=== PATIENT | male | born 1975 ===

== ENCOUNTER → 2017-05-23 | Outpatient (CLI) | payer BC | END | disposition home or self-care (01) | LOC: C.RDSM 11:05 | PROVIDERS: ATTEND Orthopaedic Surgery Sports Medicine | DX: M25.562 Pain in left knee (principal) ==

== ENCOUNTER 2019-04-17 01:38 | Inpatient (IN) ==
--- OUTSIDE RECORDS SUMMARY | 2019-04-17 01:40 | External Medical Summary | Continuity of Care Document ---
:1975 Author Name Troy Wheeler Address Unavailable Unavailable , Care Team Providers Name Role Phone Tavon Wheeler, I. Unavailable [email or web address] Unavailable Unavailable Unavailable Unavailable Problems Vasectomy evaluation (V25.09) (Z30.09) Allergies and Adverse Reactions Erythromycin TABS (Allergy) Reaction: Ra sh Medications One Daily Mens Oral Tablet Refills: 0 Vitamin C 1000 MG Oral Tablet Refills: 0 Procedures History of no history of surgery Status: Completed Immunizations Immunizations not documented Family History Mother Family history of diabetes mellitus (V18.0) (Z83.3) Status: Active Father Family history of kidney stones (V18.69) (Z84.1) Status: Act radha Family history of Liposarcoma (171.9) (C49.9) Status: Active Social History - Smoking Status Never smoker Plan of Treatment Planned Encounters Appointment; Cruz Montes De Oca M.D. Start: 21-Jul-2019 11:45 R equest Planned Observations Planned Goals not documented Results No Known Results Results not documented Encounters Appointment; Cruz Montes De Oca M.D. 04-Mar-2019 9:00 Encounter Diagnosis: Problem not documented Appointment; Cruz Montes De Oca M.D. 21-Jul-2019 11:45 Encounter Diagnosis: Problem not documented
[2019-04-17] MEDS ORDERED: dilTIAZem HCl 5 MG/ML 5 ML VIAL IV ONE (01:50)
[2019-04-17 02:07] LABS: Hematocrit (blood only) 45.2 % (42-52); Hemoglobin 16.5 g/dL (14.0-18.0); Mean Corpuscular Hgb Conc 36.5 g/dL (32-36); Mean Corpuscular Volume 85.4 fL (80-100); Mean Platelet Volume 12.2 fL (7.4-10.4); Platelet Count 193 K/uL (130-400); RDW Coefficient of Variation 12.9 % (11.5-14.5); Red Blood Count 5.29 M/uL (4.7-6.1); White Blood Count 8.58 K/uL (4.8-10.8)
[2019-04-17 02:23] LABS: Alanine Aminotransferase 36 U/L (12-78); Albumin Level 4.2 gm/dl (3.4-5.0); Aspartate Aminotransferase 22 U/L (15-37); BUN Creatinine Ratio 16.9 (10-20); Blood Urea Nitrogen 17 mg/dl (7-18); Calcium 8.5 mg/dl (8.5-10.1); Carbon Dioxide 26 mmol/L (21-32); Chloride 105 mmol/L (98-107); Creatinine Clr Calc Pharmacy 117.4 ml/min; Est GFR (African American) 105.3; Est GFR (Non-African American) 90.9; Glucose 111 mg/dl (70-99); Magnesium 1.8 mg/dl (1.8-2.4); Potassium 3.3 mmol/L (3.5-5.1); Sodium 138 mmol/L (136-145)
[2019-04-17] MEDS ORDERED: METOPROLOL TARTRATE 1 MG/ML VIAL IV STA ×2 (02:23→04:49)
[2019-04-17] MEDS ORDERED: LORazepam 1 MG/2 ML VIAL IV STA (02:23)
[2019-04-17 02:34] LABS: Albumin Globulin Ratio 1.3 (0.9-2); Alkaline Phosphatase 79 U/L (45-117); Bilirubin,Total 0.5 mg/dl (0.2-1); Globulin 3.3 gm/dl (2.5-4.0); Total Protein 7.5 gm/dl (6.4-8.2); Troponin I < 0.015 ng/ml (0-0.045)
[2019-04-17 03:02] LABS: ALC (manual) 4.37 K/uL (1.2-3.4); Echinocytes 1+; Eosinophils # (manual) 0.15 K/uL (0-0.5); Large Granular Lymph % (manual) 18.4 %; Lymphocytes # (manual) 2.79 K/uL (1.2-3.4); Lymphocytes % (manual) 32.5 %; Monocytes # (manual) 0.52 K/uL (0.11-0.59); Monocytes % (manual) 6.1 %; Neutrophils % (manual) 41.2 %
[2019-04-17] MEDS ORDERED: HEPARIN 25000 UNIT/500 ML D5W IV ONE (03:59)
[2019-04-17] MEDS ORDERED: HEPARIN SOD (PORCINE) 1000 UNIT/ML 10 ML VIAL ONE (04:00)
[2019-04-17 04:16] LABS: Partial Thromboplastin Time 27.9 Seconds (21.0-31.0); Prothrombin Time 10.6 Seconds (9.0-12.0)
--- NOTE | 2019-04-17 04:27 | Emergency Department Note ---
Entered by Keiko Ross acting as a scribe for Suzanne Oden DO History of Present Illness General Chief complaint: Arrhythmia/Palpitations Stated complaint: HEART BEAT IRREGULAR Time Seen by Provider: 04/17/19 01:39 Source: patient Limitations: no limitations History of Present Illness Onset (ago): minute(s) ([employer]) Location: chest Pain Consistency: + intermittent Current Pain Intensity: 0 Quality: + other (palpitations) Relieved By: + none Associated symptoms: + other (more stressed than normal at work) Treatments prior to arrival: other (Zantac) The patient is a 43 year old male who presents to the ED complaining of intermittent chest palpitations that began [employer]. He states that these symptoms do not feel like heartburn, but it does feel similar to past episodes of GERD. The patient complains of being more stressed than normal at work. He denies any pain. The patient states that he used to drink a whole pot of coffee daily, but he reduced it 1-2 cups a day. He reports that he took Zantac [employer], but it provided no relief. The patient notes that he has a family history of heart failure, stating this happened to his grandfather. Home Medications Home Medications Medication Instructions Recorded Confirmed Type multivitamin [Multiple Vitamins] 1 tab PO DAILY 04/17/19 04/17/19 History ranitidine HCl [Zantac Maximum 150 mg PO DAILY PRN 04/17/19 04/17/19 History Strength] Allergies Allergy/AdvReac Type Severity Reaction Status Date / Time erythromycin base Allergy Rash Verified 04/17/19 02:09 Past Med/Surg History Medical History No significant past medical history Family History Other Heart failure Social History Feels Safe at Home: Yes Smoking Status: Never smoker Review of Systems See HPI for pertinent positives & negatives. and A total of 10 systems reviewed and were otherwise negative Physical Exam Vital Signs Vital Signs - 24 hr 04/17/19 01:41 04/17/19 01:49 04/17/19 01:50 Temperature 36.6 C Temperature Source Oral Sepsis Recent Fever Within 48 Hours No Sepsis Action Taken by Nursing No Action Required Pulse Rate 110 H 154 H 179 H Pulse Rate from SpO2 Sensor Respiratory Rate 18 15 18 Respiratory Effort / Characteristics Non-Labored Spontaneous Respiratory Depth Normal Blood Pressure 186/117 H 142/109 H Blood Pressure Mean 140 120 Pulse Oximetry 100 Oxygen Delivery Method Room Air 04/17/19 02:00 04/17/19 02:01 04/17/19 02:16 Temperature Temperature Source Sepsis Recent Fever Within 48 Hours Sepsis Action Taken by Nursing Pulse Rate 106 H 102 H 141 H Pulse Rate from SpO2 Sensor 97 H 93 H 132 H Respiratory Rate 22 29 H 15 Respiratory Effort / Characteristics Respiratory Depth Blood Pressure 114/81 150/104 H Blood Pressure Mean 92 119 Pulse Oximetry 95 98 94 Oxygen Delivery Method 04/17/19 02:30 04/17/19 02:37 04/17/19 02:50 Temperature Temperature Source Sepsis Recent Fever Within 48 Hours Sepsis Action Taken by Nursing Pulse Rate 121 H 118 H 91 H Pulse Rate from SpO2 Sensor 92 H 81 Respiratory Rate 17 16 Respiratory Effort / Characteristics Respiratory Depth Blood Pressure 124/89 Blood Pressure Mean Pulse Oximetry 96 96 Oxygen Delivery Method 04/17/19 03:00 04/17/19 03:01 04/17/19 03:10 Temperature Temperature Source Sepsis Recent Fever Within 48 Hours Sepsis Action Taken by Nursing Pulse Rate 111 H 102 H 117 H Pulse Rate from SpO2 Sensor 81 99 H 82 Respiratory Rate 16 17 18 Respiratory Effort / Characteristics Respiratory Depth Blood Pressure 119/76 Blood Pressure Mean 90 Pulse Oximetry 94 95 96 Oxygen Delivery Method 04/17/19 03:16 04/17/19 03:30 04/17/19 03:46 Temperature Temperature Source Sepsis Recent Fever Within 48 Hours Sepsis Action Taken by Nursing Pulse Rate 113 H 105 H 103 H Pulse Rate from SpO2 Sensor 85 79 79 Respiratory Rate 17 16 16 Respiratory Effort / Characteristics Respiratory Depth Blood Pressure 92/74 L 124/83 108/64 Blood Pressure Mean 80 96 78 Pulse Oximetry 95 95 94 Oxygen Delivery Method HEENT: Head - normocephalic and atraumatic Pupils are equal, round, and reactive to light. Extraocular eye muscles are intact, and sclera are anicteric. Nose - moist nasal mucosa without discharge. Mouth - moist buccal mucosa. Oropharynx is nonerythematous and there is no tonsillar exudate or edema noted. Neck: Supple; no JVD, nuchal rigidity, cervical lymphadenopathy, or auscultated bruits. Heart: Tachycardic rate and irregularly irregular rhythm. There is a normal S1 and S2 with no murmurs, clicks, or gallops appreciated. Lungs: Clear to auscultation bilaterally with no wheezes, rales, or rhonchi. Abdomen: Soft, completely nontender, nondistended, with good bowel sounds. There are no palpable pulsatile masses or hepatosplenomegaly. There is no guarding, rigidity, or rebound noted. Extremities: No evidence of cyanosis, clubbing, or edema. There are easily palpable peripheral pulses. Skin: warm and dry with good turgor and no rashes. Course 0147: The patient was evaluated in room A02. A complete history and physical exam was performed. The patient was observed on the nurse monitoring and pulse oximeter. An IV lock was initiated and labs were drawn as above. A twelve-lead EKG was obtained as described above 0150: Cardizem 20 mg IV 0221: I reevaluated the patient. His heart rate was in the 120s and 130s. He had just got up to go to the bathroom. 0223: Lopressor 5 mg IV, Ativan 1 mg in 2 ml IV 0318: I reassessed the patient. His heart rate was in the 90s, but he was still in atrial fibrillation. 0320: Heparin IV Standard WITH Bolus 1 ea IV 0325: I spoke with Dr. Salvador, [facility] hospitalist, about the patient's case. He will evaluate the patient further. Consultations Consultation #1: [facility]. He will evaluate the patient further. Time: 03:25 Administered Medications Discontinued Medications Diltiazem HCl (Cardizem) Confirm Administered Dose 25 mg IV .[facility] Stop: 04/17/19 01:51 Last Admin: 04/17/19 01:54 Dose: 20 mg Documented by: [id number] Cosigned by: [id number] Lorazepam (Ativan) 1 mg in 2 mls @ 2 mls/min IV NOW STA Stop: 04/17/19 02:24 Last Admin: 04/17/19 02:37 Dose: 2 mls/min Documented by: [id number] Metoprolol Tartrate (Lopressor) 5 mg IV NOW STA Stop: 04/17/19 02:24 Last Admin: 04/17/19 02:37 Dose: 5 mg Documented by: [id number] Medical Decision Making Differential Diagnosis The differential diagnosis includes: Atrial fibrillation with RVR, cardiac dysrhythmia, anxiety, thyroid dysfunction, and cardiomyopathy. Medical Records Attestation: I reviewed the patient's medical records. Home Medications Current Medication List: was personally reviewed by me Laboratory Data Attestation: I reviewed the patient's lab results. Result diagrams: 04/17/19 01:55 04/17/19 01:55 Lab Results 04/17/19 04/17/19 04/17/19 Range/Units 01:55 01:55 01:55 WBC 8.58 (4.8-10.8) K/uL RBC 5.29 (4.7-6.1) M/uL Hgb 16.5 (14.0-18.0) g/dL Hct 45.2 (42-52) % MCV 85.4 (80-100) fL MCH 31.2 (25-34) pg MCHC 36.5 H (32-36) g/dL RDW Std Deviation 40.0 (36.4-46.3) fL RDW Coeff of João 12.9 (11.5-14.5) % Plt Count 193 (130-400) K/uL MPV 12.2 H (7.4-10.4) fL Neutrophils % (Manual) 41.2 % Lymphocytes % (Manual) 32.5 % Monocytes % (Manual) 6.1 % Eosinophils % (Manual) 1.8 % Neutrophils # (Manual) 3.53 (1.4-6.5) K/uL Total Absolute Neuts 3.53 (1.4-6.5) K/uL Lymphocytes # (Manual) 2.79 (1.2-3.4) K/uL Total Abs Lymphocytes 4.37 H (1.2-3.4) K/uL Monocytes # (Manual) 0.52 (0.11-0.59) K/uL Eosinophils # (Manual) 0.15 (0-0.5) K/uL Large Granular Lymphs 18.4 % # Lrg Granular Lymphs 1.58 K/uL Echinocytes 1+ PT 10.6 (9.0-12.0) Seconds INR 1.0 (0.9-1.1) APTT 27.9 (21.0-31.0) Seconds PTT Ratio 1.0 Sodium 138 (136-145) mmol/L Potassium 3.3 L (3.5-5.1) mmol/L Chloride 105 (98-107) mmol/L Carbon Dioxide 26 (21-32) mmol/L Anion Gap 7.0 (3-11) BUN 17 (7-18) mg/dl Creatinine 1.02 (0.6-1.4) mg/dl Est Cr Clr Drug Dosing 117.4 ml/min Est GFR ( Amer) 105.3 Est GFR (Non-Af Amer) 90.9 BUN/Creatinine Ratio 16.9 (10-20) Glucose 111 H (70-99) mg/dl Calcium 8.5 (8.5-10.1) mg/dl Magnesium 1.8 (1.8-2.4) mg/dl Total Bilirubin 0.5 (0.2-1) mg/dl AST 22 (15-37) U/L ALT 36 (12-78) U/L Alkaline Phosphatase 79 (45-117) U/L Troponin I < 0.015 (0-0.045) ng/ml Total Protein 7.5 (6.4-8.2) gm/dl Albumin 4.2 (3.4-5.0) gm/dl Globulin 3.3 (2.5-4.0) gm/dl Albumin/Globulin Ratio 1.3 (0.9-2) TSH 1.810 (0.300-4.500) uIu/ml Imaging Data Attestation: I personally reviewed and interpreted this imaging study as follows: My Impression: XR CHEST 1V: No pulmonary infiltrates or pleural effusions. ECG Data Attestation: I personally reviewed and interpreted this ECG as follows: Indication: palpitations Rate (beats per minute): 159 Rhythm: atrial fibrillation (with RVR) Findings: + other (inferior changes concerning for ischemia) and + ST depression (Inferior) Blood Pressure Blood Pressure Findings: Elevated blood pressure Blood Pressure Disposition: elevated BP felt to be situational MDM Narrative The patient is a 43 year old male who presents to the ED complaining of intermittent chest palpitations that began [employer]. The patient denies ever having a history of this in the past. EKG revealed atrial fibrillation with rapid ventricular response. The patient did have some associated GERD earlier today. He took Zantac for this. Troponin is negative here. Rate was controlled with Lopressor and Cardizem. I discussed the case with the [facility] Hospitalist and they will evaluate for further management. The patient was bolused with heparin and started on a heparin drip. Impression & Plan Atrial fibrillation with RVR Critical Care Time I have personally spent 60 minutes of critical care time in the direct management of this patient. This includes bedside care, interpretation of diagnostic studies, and testing, discussion with consultants, patient, and family members, and other required patient management activities. This 60 minutes is in excess of all separately billable procedures. Critical Care Time: Yes Total Critical Care Time: 60 Discharge Plan Visit Data Chief Complaint: Arrhythmia/Palpitations Stated Complaint: HEART BEAT IRREGULAR ED Provider: Suzanne Oden Discharge Problem: Atrial fibrillation with RVR Patient Disposition: Being Evaluated by Hospitalist Forms Stand Alone Forms: My [facility] Prescriptions Prescriptions: No Action multivitamin [Multiple Vitamins] Tablet 1 tab PO DAILY RF: 0 ranitidine HCl [Zantac Maximum Strength] 150 mg Tablet 150 mg PO DAILY PRN (Reason: Heartburn) RF: 0 Referrals Referrals: Mariya Pena MD [Primary Care Provider] - The scribe's documentation has been prepared under my direction and personally reviewed by me in its entirety. I confirm that the note above accurately reflects all work, treatment, procedures, and medical decision making performed by me.
[2019-04-17] MEDS ORDERED: dilTIAZem HCl 125 MG in DEXTROSE 5% 100 ML IV SCH (05:20)
[2019-04-17] MEDS ORDERED: ACETAMINOPHEN 325 MG TAB PO PRN (05:20)
[2019-04-17] MEDS ORDERED: POTASSIUM CHLORIDE 20 MEQ TABCR PO STA ×2 (05:20→13:57)
[2019-04-17] MEDS ORDERED: NITROGLYCERIN SL 0.4 MG/TAB TAB SL PRN (05:20)
[2019-04-17] MEDS ORDERED: Heparin IV Standard *NO* Bolus ONE (05:20)
[2019-04-17] MEDS ORDERED: ONDANSETRON INJ 2 MG/ML 2 ML VIAL IV PRN (05:20)
[2019-04-17] MEDS ORDERED: dilTIAZem HCl 125 MG in DEXTROSE 5% 100 ML IV PRN (06:15)
[2019-04-17] MEDS: Heparin Adult STANDARD Wt-Based Dextrose 5% 25,000 units/500 mL IV SCH ×2 (06:37→06:56)
--- NOTE | 2019-04-17 07:18 | History and Physical Report ---
DATE OF ADMISSION: 04/17/2019 CHIEF COMPLAINT: Rapid AFib. HISTORY OF PRESENT ILLNESS: This is a 43-year-old male with no significant past medical history who lives with his and his kids, presents with palpitations and found to be in rapid AFib. The patient says he noticed tonight that his heart was skipping and also noticed palpitations and during this period, he had a couple episodes of shortness of breath, but denies any chest pain, no dizziness, no headaches. Because of ongoing palpitations, he came to the ER and found to be in rapid AFib. This is the first time it happened to him. The patient says his parents did not have any cardiac history. His grandparents might have had some heart disease. Denies any smoking. He says he drinks occasionally. Denies any recent drug abuse. He says he might have abused a couple of drugs about 20 years ago. Denies any nausea, vomiting. No fever, chills. No cough, no blurred vision, no earache, no runny nose, no sore throat. Appetite is okay. No fever, no chills, no cough, no abdominal pain. Sometimes he feels after eating he will have some irritation feeling in his esophagus, takes Zantac. Normal bowel and bladder movements. No hematuria or burning micturition. No melena or hematochezia. No swelling of the legs. Currently, he received couple of doses of iv Cardizem and a dose of IV Lopressor in the ER, still heart rates ranging from 130-150s. ALLERGIES: ERYTHROMYCIN. PAST MEDICAL HISTORY: None. PAST SURGICAL HISTORY: None. MEDICATIONS: Takes Zantac and multivitamin. FAMILY HISTORY: Father had a liposarcoma of the left arm and diabetes. Mother has high cholesterol. SOCIAL HISTORY: Lives with his and kids. No smoking, alcohol occasionally. No recent use of drugs. REVIEW OF SYMPTOMS: As per HPI. Rest of review of symptoms is negative. IMMUNIZATIONS: Pneumococcal vaccine, July 2013. Flu vaccine, October 2018. PHYSICAL EXAMINATION: GENERAL: The patient is alert and oriented, not in acute distress. VITAL SIGNS: Temperature 36.6, pulse currently in the 130-150, blood pressure 108/64, oxygen 94% room air. HEENT: No pallor, no icterus. Pupils equal, round, and reactive to light. NECK: No JVD, no neck masses, no carotid bruit. CARDIOVASCULAR: S1, S2 heard. Irregular rhythm. Tachycardia. No murmurs. RESPIRATORY SYSTEM: Normal AP diameter. No accessory muscle use. No wheezing, no crackles. ABDOMEN: Soft, bowel sounds present. Nontender. No distention. CENTRAL NERVOUS SYSTEM: Cranial nerves II-XII grossly intact. Nonfocal. EXTREMITIES: No edema, no erythema. LABORATORY DATA: WBC is 8.5, hemoglobin 16.5, hematocrit 45.2, platelets 193. PT 10.6, INR 1, APTT 27.9. Sodium 138, potassium 3.3, chloride 105, bicarbonate 26, BUN 17, creatinine 1.02, serum glucose 111, calcium 8.5, magnesium 1.8, total bilirubin 0.5, AST 22, ALT 36, alkaline phosphatase 79. Troponin I less than 0.015. TSH 1.8. Chest x-ray: No acute findings. EKG: Rapid atrial fibrillation with a rate of 159, nonspecific ST abnormalities seen. ASSESSMENT AND PLAN: This 43-year-old male presents with rapid atrial fibrillation. 1. Rapid atrial new onset, etiology unclear. Labs are okay except for mild hypokalemia which we will replace. Troponin negative. The patient received couple of doses of iv Cardizem and a dose of IV Lopressor in the ER. We will place him on Cardizem drip, IV heparin. Follow serial cardiac enzymes, echocardiogram. Closely monitor in tele floor. Consult cardiology for further recommendations. The patient's CHADS2-VASc score is 0 .Long-term anticoagulation as per cardiology. 2. Hypokalemia. We will replace. 3. Deep venous thrombosis prophylaxis, on IV heparin. 4. Disposition: Admit to tele floor. Expect to discharge home and follow with his family doctor and cardiology. Level 1 full code. MTDD
--- NOTE | 2019-04-17 07:46 | XRay Report ---
XR chest 1V portable HISTORY: eval for cardiomegaly COMPARISON: None. FINDINGS: The lungs are clear. Cardiac silhouette is normal in size. No pleural effusions. No pneumot horax. IMPRESSION: No acute process. Electronically signed by: Atul Woodward M.D. 04/17/2019 7:45 AM
[2019-04-17] MEDS ORDERED: MULTIVITAMIN TAB PO SCH (09:00)
[2019-04-17 12:24] LABS: Partial Thromboplastin Ratio 3.5
[2019-04-17 12:27] LABS: Partial Thromboplastin Time 93.7 Seconds (21.0-31.0)
--- NOTE | 2019-04-17 13:27 | Hospitalist Progress Note ---
Date of Service April 17, 2019 Results & Data Vital Signs (Past 12 Hours) Vital Signs Temp Pulse Pulse Resp BP BP Pulse Ox 04/17/19 11:13 36.8 C 74 19 128/79 95 04/17/19 07:40 36.2 C L 89 19 115/70 93 04/17/19 05:20 36.8 C 94 H 18 109/79 97 04/17/19 04:54 145 H 118/75 04/17/19 04:45 141 H 18 118/75 04/17/19 04:35 143 H 15 102/83 04/17/19 04:31 121 H 9 L 98/80 L 04/17/19 04:17 132 H 19 133/54 L 04/17/19 04:00 147 H 5 L 100/87 96 04/17/19 03:46 103 H 16 108/64 94 04/17/19 03:30 105 H 16 124/83 95 04/17/19 03:16 113 H 17 92/74 L 95 04/17/19 03:10 117 H 18 96 04/17/19 03:01 102 H 17 119/76 95 04/17/19 03:00 111 H 16 94 04/17/19 02:50 91 H 16 96 04/17/19 02:37 118 H 124/89 04/17/19 02:30 121 H 17 96 04/17/19 02:16 141 H 15 150/104 H 94 04/17/19 02:01 102 H 29 H 114/81 98 04/17/19 02:00 106 H 22 95 04/17/19 01:50 179 H 18 04/17/19 01:49 154 H 15 142/109 H 04/17/19 01:41 36.6 C 110 H 18 186/117 H 100
[2019-04-17] MEDS ORDERED: PANTOprazole 40 MG TAB PO SCH (13:30)
--- NOTE | 2019-04-17 13:46 | Cardiology Consultation ---
Date of Consultation April 17, 2019 Assessment & Plan (1) Atrial fibrillation with RVR: Patient presents with new onset atrial fibrillation abrupt in timing and onset. Rates are only marginally controlled with IV diltiazem patient not significantly symptomatic other than past sensation of palpitations Echocardiogram demonstrates normal LV function without significant valvular disease cardiac enzymes normal Discussed mechanism and treatment in detail with patient and Plan: Initiate oral beta-sheldon with Toprol-XL 25 g now and this evening. Continue IV heparin Supplement potassium Keep n.p.o. after midnight tonight Present on Admission?: Yes History of Present Illness Reason for Consultation: New onset atrial fibrillation Requesting Physician: Dr. White Attending Physician: Marilia White, DO History of Present Illness Patient is a 43-year-old male without prior cardiac history or complaint minimal underlying medical issues who notes after recent stressful day at work to lie down at bed at night and noted sensation of tachypalpitations pounding in the left side of the chest worse with movement and walking. He presented to the emergency room where he was found to be in atrial fibrillation with rapid v entricular response He was begun on IV diltiazem to aid in rate control and referred now for further evaluation. He is appropriately anticoagulated IV heparin He denies prior history of atrial arrhythmias. Denies history of chest pains tachypalpitations syncope or near syncope. No history of hypertension diabetes mellitus renal or hepatic disease. No history of TIA or stroke. Notes no change in exercise capacity. Only ongoing issues intermittent indigestion and heartburn relieved with Zantac. Notes ate a pizza last night with onions and drank a soda unusual for patient. Took a Zantac prior to event No history febrile illness. Did travel to [place] and [facility] 2 weeks ago. But no leg swelling or edema. No shortness of breath or hypoxia No history of sleep disturbance, acute weight loss or gain Allergies Allergy/AdvReac Type Severity Reaction Status Date / Time erythromycin base Allergy Rash Verified 04/17/19 02:09 Home Medications Home Medications Medication Instructions Recorded Confirmed Type multivitamin [Multiple Vitamins] 1 tab PO DAILY 04/17/19 04/17/19 History ranitidine HCl [Zantac Maximum 150 mg PO DAILY PRN 04/17/19 04/17/19 History Strength] Patient History Medical History No significant past medical history Family History Other Heart failure Social History Preferred Language: Serbian Communication Ability: Effective Beliefs That Will Affect Care: None Current Living Situation: Spouse and Family Other Information That Helps Us Care for You: No Feels Safe at Home: Yes Safety Concerns: Feels Safe At This Time Smoking Status: Never smoker Hx Alcohol Use: No Hx Substance Use: No Review of Systems Review of Systems: As per HPI Physical Exam Constitutional: WD/WN, vitals as above Eyes: PERRL, conjunctivae normal, anicteric sclerae ENMT: external ear and nose normal, oropharynx normal Neck: trachea midline, no thyromegaly Respiratory: normal respiratory effort, lungs clear to auscultation Cardiovascular: Rate/Rhythm: + irregularly irregular Heart Sounds: normal S1 and normal S2; no gallop, no murmur and no cardiac rub Palpation: normal PMI Vessels: no JVD, no carotid bruit and no abdominal aortic bruit Extremities: no edema Gastrointestinal (Abdomen): normal bowel sounds, soft, nontender, no hepatosplenomegaly Musculoskeletal: no cyanosis or clubbing, extremities motor strength 5/5 Neurologic: PERRL, EOMI, accommodation nl, no face palsy, no dysarthria Psychiatric: A+Ox3, euthymic affect Results & Data Vital Signs (Past 12 Hours) Vital Signs Temp Pulse Pulse Resp BP BP Pulse Ox 04/17/19 11:13 36.8 C 74 19 128/79 95 04/17/19 07:40 36.2 C L 89 19 115/70 93 04/17/19 05:20 36.8 C 94 H 18 109/79 97 04/17/19 04:54 145 H 118/75 04/17/19 04:45 141 H 18 118/75 04/17/19 04:35 143 H 15 102/83 04/17/19 04:31 121 H 9 L 98/80 L 04/17/19 04:17 132 H 19 133/54 L 04/17/19 04:00 147 H 5 L 100/87 96 04/17/19 03:46 103 H 16 108/64 94 04/17/19 03:30 105 H 16 124/83 95 05/18/19 03:16 113 H 17 92/74 L 95 04/17/19 03:10 117 H 18 96 04/17/19 03:01 102 H 17 119/76 95 04/17/19 03:00 111 H 16 94 04/17/19 02:50 91 H 16 96 04/17/19 02:37 118 H 124/89 04/17/19 02:30 121 H 17 96 04/17/19 02:16 141 H 15 150/104 H 94 04/17/19 02:01 102 H 29 H 114/81 98 04/17/19 02:00 106 H 22 95 04/17/19 01:50 179 H 18 04/17/19 01:49 154 H 15 142/109 H Laboratory Results Laboratory Results - last 24 hr 04/17/19 04/17/19 04/17/19 01:55 01:55 01:55 WBC 8.58 RBC 5.29 Hgb 16.5 Hct 45.2 MCV 85.4 MCH 31.2 MCHC 36.5 H RDW Std Deviation 40.0 RDW Coeff of João 12.9 Plt Count 193 MPV 12.2 H Neutrophils % (Manual) 41.2 Lymphocytes % (Manual) 32.5 Monocytes % (Manual) 6.1 Eosinophils % (Manual) 1.8 Neutrophils # (Manual) 3.53 Total Absolute Neuts 3.53 Lymphocytes # (Manual) 2.79 Total Abs Lymphocytes 4.37 H Monocytes # (Manual) 0.52 Eosinophils # (Manual) 0.15 Large Granular Lymphs 18.4 # Lrg Granular Lymphs 1.58 Echinocytes 1+ PT 10.6 INR 1.0 APTT 27.9 PTT Ratio 1.0 Sodium 138 Potassium 3.3 L Chloride 105 Carbon Dioxide 26 Anion Gap 7.0 BUN 17 Creatinine 1.02 Est Cr Clr Drug Dosing 117.4 Est GFR ( Amer) 105.3 Est GFR (Non-Af Amer) 90.9 BUN/Creatinine Ratio 16.9 Glucose 111 H POC Glucose Calcium 8.5 Magnesium 1.8 Total Bilirubin 0.5 AST 22 ALT 36 Alkaline Phosphatase 79 Troponin I < 0.015 Total Protein 7.5 Albumin 4.2 Globulin 3.3 Albumin/Globulin Ratio 1.3 TSH 1.810 04/17/19 04/17/19 04/17/19 06:26 07:22 11:44 WBC RBC Hgb Hct MCV MCH MCHC RDW Std Deviation RDW Coeff of João Plt Count MPV Neutrophils % (Manual) Lymphocytes % (Manual) Monocytes % (Manual) Eosinophils % (Manual) Neutrophils # (Manual) Total Absolute Neuts Lymphocytes # (Manual) Total Abs Lymphocytes Monocytes # (Manual) Eosinophils # (Manual) Large Granular Lymphs # Lrg Granular Lymphs Echinocytes PT INR APTT PTT Ratio Sodium Potassium Chloride Carbon Dioxide Anion Gap BUN Creatinine Est Cr Clr Drug Dosing Est GFR ( Amer) Est GFR (Non-Af Amer) BUN/Creatinine Ratio Glucose POC Glucose 103 H Calcium Magnesium Total Bilirubin AST ALT Alkaline Phosphatase Troponin I < 0.015 < 0.015 Total Protein Albumin Globulin Albumin/Globulin Ratio TSH 04/17/19 11:48 WBC RBC Hgb Hct MCV MCH MCHC RDW Std Deviation RDW Coeff of João Plt Count MPV Neutrophils % (Manual) Lymphocytes % (Manual) Monocytes % (Manual) Eosinophils % (Manual) Neutrophils # (Manual) Total Absolute Neuts Lymphocytes # (Manual) Total Abs Lymphocytes Monocytes # (Manual) Eosinophils # (Manual) Large Granular Lymphs # Lrg Granular Lymphs Echinocytes PT INR APTT 93.7 H* PTT Ratio 3.5 Sodium Potassium Chloride Carbon Dioxide Anion Gap BUN Creatinine Est Cr Clr Drug Dosing Est GFR ( Amer) Est GFR (Non-Af Amer) BUN/Creatinine Ratio Glucose POC Glucose Calcium Magnesium Total Bilirubin AST ALT Alkaline Phosphatase Troponin I Total Protein Albumin Globulin Albumin/Globulin Ratio TSH ECG Additional Comments: 17-APR-2019 01:47:01 [facility]-EDSTAT ROUTINE RETRIEVAL Atrial fibrillation with rapid ventricular response Nonspecific ST abnormality Abnormal QRS-T angle, consider primary T wave abnormality Abnormal ECG No previous ECGs available Confirmed by Deuce Guevara ([id number]) on 04/17/2019 11:48:23 AM
[2019-04-17] MEDS ORDERED: METOPROLOL SUCC 25MG EXT REL TAB PO STA (13:49)
--- NOTE | 2019-04-17 15:06 | Cardiology Progress Note ---
Date of Service April 17, 2019 Assessment & Plan (1) Atrial fibrillation with RVR: Patient presents with new onset atrial fibrillation abrupt in timing and onset. Rates are only marginally controlled with IV diltiazem patient not significantly symptomatic other than past sensation of palpitations Echocardiogram demonstrates normal LV function without significant valvular disease cardiac enzymes normal Discussed mechanism and treatment in detail with patient and Plan: Initiate oral beta-sheldon with Toprol-XL 25 g now and this evening. Continue IV heparin Supplement potassium Keep n.p.o. after midnight tonight Addendum patient converted spontaneously will discontinue above orders including IV heparin begin Toprol-XL 12.5 mg daily plan follow-up post discharge with cardiology in a month discussed atrial fibrillation in detail with the patient he will contact with any work Subjective Return to see patient after he spontaneously converted to sinus rhythm. Feels well EKG postconversion demonstrates normal tracing no QT prolongation no ST segment abnormalities Physical Exam Constitutional: WD/WN, vitals as above Eyes: PERRL, conjunctivae normal, anicteric sclerae ENMT: external ear and nose normal, oropharynx normal Neck: trachea midline, no thyromegaly Respiratory: normal respiratory effort, lungs clear to auscultation Cardiovascular: Rate/Rhythm: + irregularly irregular Heart Sounds: normal S1 and normal S2; no gallop, no murmur and no cardiac rub Palpation: normal PMI Vessels: no JVD, no carotid bruit and no abdominal aortic bruit Extremities: no edema Gastrointestinal (Abdomen): normal bowel sounds, soft, nontender, no hepatosplenomegaly Musculoskeletal: no cyanosis or clubbing, extremities motor strength 5/5 Neurologic: PERRL, EOMI, accommodation nl, no face palsy, no dysarthria Psychiatric: A+Ox3, euthymic affect Results & Data Vital Signs (Past 12 Hours) Vital Signs Temp Pulse Pulse Resp BP BP Pulse Ox 04/17/19 14:59 36.5 C 72 126/84 97 04/17/19 11:13 36.8 C 74 19 128/79 95 04/17/19 07:40 36.2 C L 89 19 115/70 93 04/17/19 05:20 36.8 C 94 H 18 109/79 97 04/17/19 04:54 145 H 118/75 04/17/19 04:45 141 H 18 118/75 04/17/19 04:35 143 H 15 102/83 04/17/19 04:31 121 H 9 L 98/80 L 04/17/19 04:17 132 H 19 133/54 L 04/17/19 04:00 147 H 5 L 100/87 96 04/17/19 03:46 103 H 16 108/64 94 04/17/19 03:30 105 H 16 124/83 95 04/17/19 03:16 113 H 17 92/74 L 95 04/17/19 03:10 117 H 18 96
--- NOTE | 2019-04-17 15:12 | Discharge Summary ---
Date of Service April 17, 2019 Admission HPI Per Admitting Provider HISTORY OF PRESENT ILLNESS: This is a 43-year-old male with no significant past medical history who lives with his and his kids, presents with palpitations and found to be in rapid AFib. The patient says he noticed tonight that his heart was skipping and also noticed palpitations and during this period, he had a couple episodes of shortness of breath, but denies any chest pain, no dizziness, no headaches. Because of ongoing palpitations, he came to the ER and found to be in rapid AFib. This is the first time it happened to him. The patient says his parents did not have any cardiac history. His grandparents might have had some heart disease. Denies any smoking. He says he drinks occasionally. Denies any recent drug abuse. He says he might have abused a couple of drugs about 20 years ago. Denies any nausea, vomiting. No fever, chills. No cough, no blurred vision, no earache, no runny nose, no sore throat. Appetite is okay. No fever, no chills, no cough, no abdominal pain. Sometimes he feels after eating he will have some irritation feeling in his esophagus, takes Zantac. Normal bowel and bladder movements. No hematuria or burning micturition. No melena or hematochezia. No swelling of the legs. Currently, he received couple of doses of iv Cardizem and a dose of IV Lopressor in the ER, still heart rates ranging from 130-150s. Admission Exam Per Admitting Provider PHYSICAL EXAMINATION: GENERAL: The patient is alert and oriented, not in acute distress. VITAL SIGNS: Temperature 36.6, pulse currently in the 130-150, blood pressure 108/64, oxygen 94% room air. HEENT: No pallor, no icterus. Pupils equal, round, and reactive to light. NECK: No JVD, no neck masses, no carotid bruit. CARDIOVASCULAR: S1, S2 heard. Irregular rhythm. Tachycardia. No murmurs. RESPIRATORY SYSTEM: Normal AP diameter. No accessory muscle use. No wheezing, no crackles. ABDOMEN: Soft, bowel sounds present. Nontender. No distention. CENTRAL NERVOUS SYSTEM: Cranial nerves II-XII grossly intact. Nonfocal. EXTREMITIES: No edema, no erythema. Principal Diagnosis atrial fibrillation with rapid ventricular response Discharge Data Allergies Allergy/AdvReac Type Severity Reaction Status Date / Time erythromycin base Allergy Rash Verified 04/17/19 02:09 Consultations 04/17/19 03:18 ED Decision to Admit Stat 04/17/19 08:00 Consult Cardiology Routine Hospital Course (1) Atrial fibrillation with RVR: (2) Acid reflux: 43-year-old man presented to the emergency room with new onset atrial fibrillation with rapid ventricular response. Work-up including echocardiogram demonstrated normal LV function without significant valvular disease, cardiac enzymes were trended and normal. There were some changes in caffeine intake as well as significant acid reflux issues. He was admitted to the hospitalist service overnight on IV heparin and IV diltiazem, and ultimately converted to sinus rhythm spontaneously the following day. Cardiology was consulted and initiated an oral beta-sheldon with Toprol-XL . After spontaneous conversion he was discharged in stable condition with close cardiology follow-up recommended in a month as outpatient. Total Time Total Time Spent Total Time Spent (In Minutes): 60 Total Time Includes: Examination of the Patient, Discharge Planning, Medication Reconciliation, Communication With Other Providers and Other (follow-up ) Discharge Plan Discharge Items Patient Disposition: Home - Self-Care Reason For Visit: PALPITATIONS Discharge Diagnosis: atrial fibrillation with rapid ventricular response Condition: Good Discharge Goals: Improve disease control Activity: Resume your previous activity Non-emergency contact: Primary Care Provider and Bicycle Service Technician Call non-emergency contact if: you have any medication questions, your symptoms worsen, your pain is not controlled and you have a fever Follow-up/Referrals: Mariya Pena MD [Primary Care Provider] - Guzman Wills MD [Physician] - (follow-up in one month) Diet: Regular Addtl Provider Instructions: Please take all medications as instructed and discharge list below. It is recommended that you follow-up with primary care within 1 week of discharge. Someone from our hospital staff will contact you on Friday with this time and date. It is recommended that you follow-up with [facility] cardiology within 1 month of discharge. It was a pleasure taking care of you! Please call if you have any questions or problems. You can reach a [facility] hospitalist on duty at [facility] 24 hours a day by calling [phone]. Take care of yourself. Marilia White, DO [facility] Hospitalist Prescriptions: New metoprolol succinate 25 mg Tablet Extended Release 24 Hr 12.5 mg PO QAM Qty: 30 RF: 1 pantoprazole 40 mg Tablet,Delayed Release (Dr/Ec) 40 mg PO QAM Qty: 30 RF: 1 Continued multivitamin [Multiple Vitamins] Tablet 1 tab PO DAILY RF: 0 ranitidine HCl [Zantac Maximum Strength] 150 mg Tablet 150 mg PO DAILY PRN (Reason: Heartburn) RF: 0 Stand-Alone Forms: [facility]/Other Patient Handouts: Metoprolol Succinate Oral tablet extended- release, AFL/Afib Discharge Orders: Discharge Order (Routine); Ordered 04/17/19 Ordered By: Marilia White Admission Data Admit Date/Time: 04/17/19 04:19 Attending Provider: Marilia White Admit Provider: Augustine Salvador Primary Care Provider: Mariya Pena Other Providers: Augustine Salvador ; Xavier Delgado ; Elieser Desir ; Guzman Wills ; Jimbo Abraham ; Isaiah Palacios ; Dontae Wong ; María Elena Marmolejo ; Macarena Thompson Service: Telemetry Other Interventions: Discharge Summary Assessment (RN) Last Done: 04/17/19 15:25 DC Date/Time DO NOT enter until pt leaves facility: 04/17/19 17:45
[2019-04-17] MEDS ORDERED: METOPROLOL SUCC 25MG EXT REL TAB PO SCH ×2 (15:15→21:00)
== END 2019-04-17 17:45 | disposition home or self-care (01) | DRG 310 ==
LOC: ED 01:38 → 2S 04:19